=== PATIENT | female | born 1960 | race African-American/Black ===

== ENCOUNTER 2022-01-17 19:09 | Emergency (ER) | payer SELFPAY ==
[~2022-01-17] VITALS: Ht 157.5 cm; Wt 77.0 kg
[2022-01-17 19:36] VITALS: BP 131/89
== END 2022-01-17 22:14 | disposition home or self-care (01) ==
LOC: ER 19:09
DX: S60.221A Contusion of right hand, initial encounter (principal); W01.0XXA Fall on same level from slipping, tripping and stumbling without subsequent striking against object, initial encounter; Y93.89 Activity, other specified; Y92.018 Other place in single-family (private) house as the place of occurrence of the external cause
CPT/HCPCS: 73130; 99283